=== PATIENT | female | born 1980 | race Caucasian/White ===

== ENCOUNTER 2020-06-13 16:00 | Outpatient (REF) | payer OTHER, SELFPAY | END 2020-06-13 16:01 | disposition home or self-care (01) | LOC: HO.LAB 16:00 | PROVIDERS: Visit Provider Internal Medicine | DX: Z20.828 Contact with and (suspected) exposure to other viral communicable diseases (principal) | CPT/HCPCS: 87635 ==

== ENCOUNTER 2020-09-28 17:27 | Emergency (ER) | payer OTHER, SELFPAY ==
--- NOTE | ~2020-09-28 | XR_ITS ---
EXAMINATION: PELVIS, BILATERAL HIPS AND SACRUM AND COCCYX CLINICAL INFORMATION: Fall with pain COMPARISON: None TECHNIQUE: Single view pelvis with 2 additional views each hip, 3 views sacrum and coccyx FINDINGS: No bone joint or soft tissue abnormality is seen. No fractures are detected. XR/XR hips HERMELINDO min 3V IMPRESSION: Negative exam. No evidence of acute traumatic injury.
--- NOTE | ~2020-09-28 | XR_ITS ---
EXAMINATION: PELVIS, BILATERAL HIPS AND SACRUM AND COCCYX CLINICAL INFORMATION: Fall with pain COMPARISON: None TECHNIQUE: Single view pelvis with 2 additional views each hip, 3 views sacrum and coccyx FINDINGS: No bone joint or soft tissue abnormality is seen. No fractures are detected. XR/XR sacrum coccyx min 2V IMPRESSION: Negative exam. No evidence of acute traumatic injury.
[2020-09-28 18:57] VITALS: BP 175/85; PULSE 94; RESP 20; O2SAT 99; BMI 29.7
--- NOTE | 2020-09-28 21:22 | ED.FALL ---
HPI - Fall General Chief Complaint: Fall Stated Complaint: FALL Time Seen by Provider: 09/28/20 21:18 Source: patient Mode of arrival: ambulatory Limitations: no limitations History of Present Illness HPI Narrative: Patient comes emergency room complaining of left buttocks pain. Patient states she slipped on ice earlier today while she was going into work. Patient is able to bear weight, she is able to sit but it is uncomfortable. Patient has no numbness or tingling, no radiation towards the legs. Sensation in both legs intact. Patient did not hit her head, no loss of consciousness, not on blood thinners. Patient denies injury anywhere else. complaint: fall Related Data Allergies Allergy/AdvReac Type Severity Reaction Status Date / Time No Known Allergies Allergy Unverified 05/11/20 16:35 Review of Systems Review of Systems: Constitutional : No Weight loss, No Fever, No Chills, No Night Sweats, No Fatigue, No Malaise ENT/Mouth : No Hearing loss, No Ear Pain, No Nasal Congestion, No Sinus Pain, No Hoarseness, No sore throat, No Rhinorrhea, No Swallowing Difficulty Eyes: No Eye Pain, No Swelling, No Redness, No Foreign Body, No Discharge, No Vision Changes Cardiovascular : No Chest Pain, No SOB, No Dyspnea on Exertion, No Orthopnea, No Edema, No Palpitations Respiratory : No Cough, No Sputum, No Wheezing, No Smoke Exposure, No Dyspnea Gastrointestinal : No Nausea, No Vomiting, No Diarrhea, No Constipation, No abdominal Pain, No Hematochezia, No Melena Genitourinary : no irregular bleeding, No Dysuria, No Urinary Frequency, No Hematuria, No Urinary Incontinence, No Urgency, No Flank Pain, No Urinary Flow Changes, No Hesitancy Musculoskeletal : No joint pain, complaining of left buttocks pain Skin : No Skin Lesions, No rash Neuro : No Weakness, No Numbness, No Paresthesias, No Loss of Consciousness, No Dizziness, No Headache Psych : No Anxiety/Panic, No Depression, No SI/HI/AH/VH, No Social Issues, Heme/Lymph: No Bruising, No Bleeding,No Lymphadenopathy Endocrine : No Polyuria, No Polydipsia, No Temperature Intolerance [facility] Past Medical History Medical History Hypertension No known health problems Social History Social History Alcohol intake: never Smoked in Last 30 Days: No Any prior treatment program specific to substance use: No Advance Directives: No Advance Directives Information Provided: No Physical Exam Vital Signs: Vital Signs: Last Vital Signs Pulse 94 09/28/20 18:57 Resp 20 09/28/20 18:57 BP 175/85 H 09/28/20 18:57 Pulse Ox 99 09/28/20 18:57 Body Mass Index 29.7 Appearance: Alert. Oriented X3. No acute distress. Eyes: Pupils equal, round and reactive to light. ENT: Pharynx normal. Neck: Normal inspection. Neck supple. No lymph nodes noted. No crepitus CVS: Normal heart rate and rhythm. Pulses normal. Normal S1 and S2 Respiratory: No respiratory distress. Breath sounds normal. No Wheezing. No rales Abdomen: Soft and nontender. No rigidity. No distention. good BS x4 Skin: Skin warm and dry. Normal skin color. Normal skin turgor. Small ecchymosis over the left buttocks, approximately 1 cm x 1 cm. Mild swelling, no abrasions, no lacerations. Extremities: No lower extremity edema. No lower extremity edema. No Lacerations. No Rash patient is able to flex and extend hips bilaterally, able to flex and extend back. Neuro: Oriented X 3. No motor deficit. No sensory deficit. Moving all extermities. No slurred speech. Course Course Course Narrative: I discussed the x-rays with the patient, no acute fracture. Patient declined pain medication, states she has been taking Tylenol at home. Patient states that she does not need additional prescriptions. Patient declined ibuprofen. MDM - Fall Imaging Data Hips and sacrum x-ray: Radiologist's impression: Single view pelvis with 2 additional views each hip, 3 views sacrum and coccyx FINDINGS: No bone joint or soft tissue abnormality is seen. No fractures are detected. XR/XR sacrum coccyx min 2V IMPRESSION: Negative exam. No evidence of acute traumatic injury. Discharge Plan Discharge Clinical Impression: Pain in the coccyx Fall Qualifiers: Encounter type: initial encounter Qualified Code(s): W19.XXXA - Unspecified fall, initial encounter Patient Disposition: Home, Self-Care Instructions: Coccyx Injury (ED) Additional Instructions: Please follow-up with your primary care physician tomorrow. If you have any worsening or new symptoms, please return to the emergency room or call 911 Stand Alone Forms: Work/School Release
== END 2020-09-28 21:51 | disposition home or self-care (01) ==
PROVIDERS: Emergency Provider Emergency Medicine
DX: S39.92XA Unspecified injury of lower back, initial encounter (principal); M25.552 Pain in left hip; M25.551 Pain in right hip; M53.3 Sacrococcygeal disorders, not elsewhere classified; W00.0XXA Fall on same level due to ice and snow, initial encounter; Y99.0 Civilian activity done for income or pay; Y93.9 Activity, unspecified; Y92.9 Unspecified place or not applicable
CPT/HCPCS: 72220; 73522; 99283; 99284

== ENCOUNTER 2021-07-25 11:33 | Outpatient (REF) | payer OTHER, SELFPAY | END 2021-07-25 11:34 | disposition home or self-care (01) | LOC: HO.LAB 11:33 | PROVIDERS: Visit Provider Internal Medicine | DX: Z20.822 Contact with and (suspected) exposure to COVID-19 (principal) | CPT/HCPCS: C9803; U0003; U0005 ==

== ENCOUNTER 2021-07-31 13:28 | Outpatient (REF) | payer OTHER, SELFPAY | END 2021-07-31 13:29 | disposition home or self-care (01) | LOC: HO.LAB 13:28 | PROVIDERS: Visit Provider Internal Medicine | DX: Z20.822 Contact with and (suspected) exposure to COVID-19 (principal) | CPT/HCPCS: C9803; U0003; U0005 ==